=== PATIENT | female | born 1990 | race Caucasian/White ===

== ENCOUNTER 2016-10-19 22:13 | Emergency (ER) | payer OTHER ==
[~2016-10-19] VITALS: Ht 167.6 cm; Wt 61.2 kg
[~2016-10-19 22:13] MED LIST: ADDERALL 20 MG20 M1 PO; ALBENZA200 MG PO; ATIVAN1 MG PO; AZO URINARY TR1 EACH PO; BACTRIM DS TAB1 EACH PO; BENADRYL25 MG PO; BENTYL 10 MG CA10 MG PO; CIPRO500 MG PO; CIPROFLOXACIN500 M1 PO; COMPAZINE10 MG PO; COMPAZINE25 MG RECTAL; IBUPROFEN 400400 M2 PO; IBUPROFEN 800800 M1 PO; LORTAB 5 MG/5001 TA1 PO; NAPROSYN500 MG PO; NORCO 5-325 TA1 EACH PO; ONDANSETRON HCL4 M2 PO; PEPCID20 MG PO; PERCOCET 5-3251 EACH PO; PRENATAL; PRISTIQ50 MG PO; SEROQUEL XR 30300 M1 PO; SEROQUEL400 MG PO; ULTRAM 50MG TAB50 MG PO; VICOPROFEN 2001 EACH PO; VYVANSE40 MG PO; XANAX 0.5 MG0.5 MG; ZOFRAN 4 MG ORAL4 M1 DIS; ZOFRAN ODT4 MG PO
[2016-10-19 22:34] LABS: URINE BLOOD 1+ (Negative); URINE GLUCOSE-RANDOM* NEGATIVE (Negative); URINE KETONES TRACE (Negative); URINE NITRITE POSITIVE (Negative); URINE PROTEIN (DIPSTICK) 1+ (Negative); URINE SPECIFIC GRAVITY 1.025 (1.003-1.035)
[2016-10-19 22:36] LABS: ICTOTEST (BILI CONFIRMATORY) Negative (Negative); URINE BILIRUBIN NEGATIVE (Negative); URINE COLOR DARK YELLOW
[2016-10-19 22:45] LABS: CASTS None Seen /LPF (None Seen); CRYSTALS None Seen /LPF (None Seen); SQUAMOUS 4-10 Moderate /LPF (0-3)
[2016-10-19 22:46] LABS: BACTERIA 1-9 Few /HPF (None Seen)
[2016-10-19 23:58] LABS: HEMATOCRIT 41.9 % (37.0-47.0); HEMOGLOBIN 14.4 gm/dL (12.0-15.0); MCH 33.4 pg (26.0-34.0); MCHC 34.5 g/dL (28.0-37.0); RBC 4.32 mil/uL (4.20-5.00); RDW 13.2 % (10.5-14.5); WBC 8.8 thou/uL (4.0-11.0)
[2016-10-20 00:05] LABS: CALCIUM 8.8 mg/dL (8.5-10.1); CREATININE 0.7 mg/dL (0.6-1.0); POTASSIUM 3.7 mmol/L (3.5-5.1)
[2016-10-20] MEDS ORDERED: BACTRIM DS TAB1 EACH PO (00:09)
[2016-10-20] MEDS ORDERED: TORADOL 10 MG T10 MG PO (00:09)
[2016-10-20] MEDS ORDERED: PHENAZOPYRIDIN200 M2 PO (00:09)
[2016-10-20 00:32] VITALS: BP 119/70
== END 2016-10-20 00:34 | disposition home or self-care (01) ==
LOC: ER 22:13
PROVIDERS: Physician Assistant
DX: N20.0 Calculus of kidney (principal); N39.0 Urinary tract infection, site not specified; R31.9 Hematuria, unspecified; F41.9 Anxiety disorder, unspecified; F10.99 Alcohol use, unspecified with unspecified alcohol-induced disorder; Z90.49 Acquired absence of other specified parts of digestive tract; Z88.8 Allergy status to other drugs, medicaments and biological substances

== ENCOUNTER 2017-01-03 19:00 | Emergency (ER) | payer OTHER ==
[~2017-01-03] VITALS: Ht 170.2 cm; Wt 61.2 kg
[~2017-01-03 19:00] MED LIST changes: +PHENAZOPYRIDIN200 M2 PO; +TORADOL 10 MG T10 MG PO
[2017-01-03] MEDS ORDERED: NAPROSYN500 MG PO (20:49)
[2017-01-03] MEDS ORDERED: NORCO 5-325 TA1 EACH PO (20:49)
[2017-01-03 21:59] VITALS: BP 135/81
== END 2017-01-03 22:01 | disposition home or self-care (01) ==
LOC: ER 19:00
DX: S43.084A Other dislocation of right shoulder joint, initial encounter (principal); F41.9 Anxiety disorder, unspecified; F10.99 Alcohol use, unspecified with unspecified alcohol-induced disorder; F17.200 Nicotine dependence, unspecified, uncomplicated; F15.90 Other stimulant use, unspecified, uncomplicated; Z90.49 Acquired absence of other specified parts of digestive tract; Z88.1 Allergy status to other antibiotic agents; X58.XXXA Exposure to other specified factors, initial encounter; Y93.89 Activity, other specified; Y92.89 Other specified places as the place of occurrence of the external cause; Y99.8 Other external cause status

== ENCOUNTER 2017-07-16 04:14 | Inpatient (IN) | payer OTHER ==
[~2017-07-16] VITALS: Ht 170.2 cm; Wt 61.2 kg
[2017-07-16 04:22] VITALS: BP 137/91
[2017-07-16 04:50] LABS: ABSOLUTE NEUTROPHILS 8.4 thou/uL (1.4-8.2); BASOPHILS 0.4 % (0.0-2.0); HEMATOCRIT 52.5 % (37.0-47.0); HEMOGLOBIN 18.3 gm/dL (12.0-15.0); LYMPHOCYTES 7.1 % (24.0-44.0); MCH 34.8 pg (26.0-34.0); MCHC 34.9 g/dL (28.0-37.0); MCV 99.7 fL (80.0-100.0); MONOCYTES 4.5 % (1.0-8.0); PLATELET COUNT 385 thou/uL (150-400); RBC 5.26 mil/uL (4.20-5.00); RDW 12.7 % (10.5-14.5); WBC 9.6 thou/uL (4.0-11.0)
[2017-07-16] MEDS ORDERED: NOHOMEMEDICATIONS ×2 (04:53)
[2017-07-16 04:55] LABS: URINE BLOOD 1+ (Negative); URINE CLARITY SL CLOUDY; URINE COLOR YELLOW; URINE GLUCOSE-RANDOM* NEGATIVE (Negative); URINE KETONES 3+ (Negative); URINE LEUKOCYTES-REFLEX NEGATIVE (Negative); URINE NITRITE-REFLEX NEGATIVE (Negative); URINE PROTEIN (DIPSTICK) 2+ (Negative); URINE SPECIFIC GRAVITY 1.025 (1.005-1.035); URINE UROBILINOGEN 0.2 E.U./dl (0.2-1.0)
[2017-07-16 05:00] LABS: ICTOTEST (BILI CONFIRMATORY) Negative (Negative); URINE BILIRUBIN NEGATIVE (Negative); URINE REDUCING SUBSTANCE NEGATIVE
[2017-07-16 05:01] LABS: CALCIUM 11.2 mg/dL (8.5-10.1); CREATININE 0.9 mg/dL (0.6-1.0); POTASSIUM 4.1 mmol/L (3.5-5.1)
[2017-07-16 05:07] LABS: ALBUMIN 5.2 g/dL (3.4-5.0); TOTAL BILIRUBIN 1.5 mg/dL (<0.1-1.0); TOTAL PROTEIN 9.6 g/dL (6.4-8.2)
[2017-07-16 05:21] LABS: MUCUS >6 Heavy strn/LPF (None Seen); SQUAMOUS >10 Many /LPF (0-3)
[2017-07-16 05:22] LABS: CASTS None Seen /LPF (None Seen); CRYSTALS None Seen /LPF (None Seen); URINE RBC 0-2 Rare /HPF (0-2); URINE WBC-REFLEX 0-5 Rare /HPF (0-5)
[2017-07-16 09:51] VITALS: BP 132/93
[2017-07-16 10:40] LABS: AMP/METHAMP POSITIVE (Negative); BARBITURATES Negative (Negative); BENZODIAZEPINES Negative (Negative); COCAINE Negative (Negative); METHADONE Negative (Negative); OPIATES Negative (Negative); PCP Negative (Negative)
[2017-07-16 15:03] VITALS: BP 113/78
[2017-07-16 15:08] VITALS: BP 113/78
[2017-07-16 21:55] VITALS: BP 112/85
[2017-07-17 05:18] VITALS: BP 109/77
[2017-07-17 06:36] LABS: CALCIUM 8.8 mg/dL (8.5-10.1); CREATININE 0.6 mg/dL (0.6-1.0); MAGNESIUM 1.8 mg/dL (1.8-2.4); POTASSIUM 3.6 mmol/L (3.5-5.1)
[2017-07-17 09:07] VITALS: BP 117/66
[2017-07-17 16:32] VITALS: BP 98/63
[2017-07-17 20:45] VITALS: BP 110/78
[2017-07-18 04:03] VITALS: BP 100/66
[2017-07-18 07:25] VITALS: BP 101/62
[2017-07-18 15:50] VITALS: BP 88/58
[2017-07-18 19:26] VITALS: BP 110/71
[2017-07-19 03:17] VITALS: BP 100/64
[2017-07-19 06:51] VITALS: BP 85/57
[2017-07-19] MEDS ORDERED: NICOTINE TRANSD14 M1 TRANSDERM ×2 (12:21)
[2017-07-19] MEDS ORDERED: PROPRANOLOL 1010 MG PO ×2 (12:21)
[2017-07-19] MEDS ORDERED: PEPCID20 MG PO ×2 (12:21)
[2017-07-19 12:37] VITALS: BP 85/57
[2017-07-19 13:12] VITALS: BP 85/57
[2017-07-20] MEDS ORDERED: FISH OIL 1,001000 M2 PO ×2 (03:05)
[2017-07-20] MEDS ORDERED: ONCE DAILY1 EAC1 PO ×2 (03:05)
[2017-10-10] MEDS ORDERED: NORCO 5-325 TA1 EACH PO (09:22)
== END 2017-07-19 13:15 | disposition home or self-care (01) | DRG 897 ==
LOC: ER 04:14 → 4S 05:59 → EROBS 05:59 → 4S 15:06
PROVIDERS: Emergency Medicine; Internal Medicine; Nurse Practitioner
DX: F10.230 Alcohol dependence with withdrawal, uncomplicated (principal); F41.9 Anxiety disorder, unspecified; K58.9 Irritable bowel syndrome, unspecified; E86.0 Dehydration; F12.10 Cannabis abuse, uncomplicated; F14.10 Cocaine abuse, uncomplicated; F17.210 Nicotine dependence, cigarettes, uncomplicated; Z90.49 Acquired absence of other specified parts of digestive tract; Z71.6 Tobacco abuse counseling; Z88.8 Allergy status to other drugs, medicaments and biological substances
CPT/HCPCS: 10100

== ENCOUNTER 2017-07-20 00:01 | Inpatient (IN) | payer OTHER ==
[~2017-07-20] VITALS: Ht 170.2 cm; Wt 56.9 kg
--- NOTE | ~2017-07-20 | EEG ---
[facility] [place] [address] ELECTROENCEPHALOGRAM Name: NATE DUVAL Room #: 212-P [facility] IN M.R.#: [id number] Admission: 07/20/17 Attend Phys: Fahad Stone MD Discharge: 07/21/17 Date of : 86 Report #: [id number] THIS REPORT FOR: //name// CC: FORREST physician/PCP Vinicius Botello DATE OF SERVICE: 07/20/2017 The patient is a 27-year-old female with prior history of alcohol withdrawal seizures. The patient is having muscle spasms. DESCRIPTION OF PROCEDURE: Using the 10-20 electrode system, a portable EEG was performed at the bedside. The awake record consists of 10 Hz posterior dominant rhythm that attenuates with eye opening. Stage I sleep was characterized by attenuation of the background record. Photic stimulation was not activating. No focal abnormalities or epileptiform discharges were noted. IMPRESSION: This is a normal adult awake to stage I sleep record. No focal abnormalities or epileptiform discharges are noted. It should be kept in mind that one normal EEG does not rule out a seizure disorder. <ELECTRONICALLY SIGNED> By: America Phillips DO 07/31/17 1040 1221 [id number] America Phillips DO /nt
[~2017-07-20 00:01] MED LIST changes: +NICOTINE TRANSD14 M1 TRANSDERM; +NOHOMEMEDICATIONS; +PROPRANOLOL 1010 MG PO
[2017-07-20 00:02] VITALS: BP 125/99
[2017-07-20 00:26] LABS: ABSOLUTE NEUTROPHILS 11.8 thou/uL (1.4-8.2); BASOPHILS 0.5 % (0.0-2.0); EOSINOPHILS 0.4 % (0.0-3.0); HEMATOCRIT 48.1 % (37.0-47.0); HEMOGLOBIN 16.6 gm/dL (12.0-15.0); LYMPHOCYTES 13.3 % (24.0-44.0); MCH 34.2 pg (26.0-34.0); MCHC 34.6 g/dL (28.0-37.0); MCV 98.9 fL (80.0-100.0); MONOCYTES 6.1 % (1.0-8.0); PLATELET COUNT 359 thou/uL (150-400); POLYS 79.7 % (36.0-66.0); RBC 4.86 mil/uL (4.20-5.00); RDW 12.2 % (10.5-14.5); WBC 14.8 thou/uL (4.0-11.0)
[2017-07-20 00:34] LABS: CALCIUM 10.9 mg/dL (8.5-10.1); CREATININE 0.8 mg/dL (0.6-1.0); POTASSIUM 4.7 mmol/L (3.5-5.1)
[2017-07-20 00:38] LABS: AMP/METHAMP Negative (Negative); BARBITURATES Negative (Negative); BENZODIAZEPINES Negative (Negative); COCAINE Negative (Negative); METHADONE Negative (Negative); OPIATES Negative (Negative); PCP Negative (Negative)
[2017-07-20 00:40] LABS: ALBUMIN 4.2 g/dL (3.4-5.0); TOTAL PROTEIN 7.8 g/dL (6.4-8.2)
[2017-07-20] MEDS ORDERED: ONCE DAILY1 EAC1 PO ×2 (03:05)
[2017-07-20] MEDS ORDERED: FISH OIL 1,001000 M2 PO ×2 (03:05)
[2017-07-20 03:47] VITALS: BP 115/65
[2017-07-20 05:01] LABS: URINE BILIRUBIN NEGATIVE (Negative); URINE BLOOD TRACE (Negative); URINE CLARITY CLEAR; URINE COLOR YELLOW; URINE GLUCOSE-RANDOM* NEGATIVE (Negative); URINE KETONES 1+ (Negative); URINE LEUKOCYTES-REFLEX NEGATIVE (Negative); URINE NITRITE-REFLEX NEGATIVE (Negative); URINE PROTEIN (DIPSTICK) NEGATIVE (Negative); URINE SPECIFIC GRAVITY 1.015 (1.005-1.035)
[2017-07-20 07:22] VITALS: BP 105/71
[2017-07-20 13:16] VITALS: BP 104/68
[2017-07-20 16:30] VITALS: BP 104/69
[2017-07-20 20:06] VITALS: BP 114/80
[2017-07-21 03:01] LABS: HEMATOCRIT 40.5 % (37.0-47.0); MCH 34.7 pg (26.0-34.0); MCHC 34.6 g/dL (28.0-37.0); MCV 100.2 fL (80.0-100.0); RBC 4.05 mil/uL (4.20-5.00); RDW 12.5 % (10.5-14.5); WBC 9.6 thou/uL (4.0-11.0)
[2017-07-21 03:16] LABS: CREATININE 0.6 mg/dL (0.6-1.0); POTASSIUM 3.7 mmol/L (3.5-5.1)
[2017-07-21 03:28] LABS: CALCIUM 8.9 mg/dL (8.5-10.1)
[2017-07-21 04:00] VITALS: BP 112/74
[2017-07-21 04:02] VITALS: BP 112/74
[2017-07-21 08:39] VITALS: BP 113/72
[2017-07-21] MEDS ORDERED: XANAX 0.5 MG0.5 MG PO ×2 (10:31)
[2017-07-21 13:31] VITALS: BP 113/72
[2017-10-10] MEDS ORDERED: NORCO 5-325 TA1 EACH PO (09:22)
== END 2017-07-21 14:40 | disposition home or self-care (01) | DRG 872 ==
LOC: ER 00:01 → EROBS 01:00 → 2N 01:00 → ENTRNSPT 07-21 14:34 → EDTRNSPTSTS 07-21 14:38 → 2N 07-21 14:40
PROVIDERS: Emergency Medicine; Nurse Practitioner Acute Care
DX: A41.9 Sepsis, unspecified organism (principal); F10.239 Alcohol dependence with withdrawal, unspecified; R65.20 Severe sepsis without septic shock; F41.9 Anxiety disorder, unspecified; F32.9 Major depressive disorder, single episode, unspecified; F17.210 Nicotine dependence, cigarettes, uncomplicated; F15.10 Other stimulant abuse, uncomplicated; Z87.442 Personal history of urinary calculi; Z79.899 Other long term (current) drug therapy; Z88.8 Allergy status to other drugs, medicaments and biological substances
CPT/HCPCS: 10081

== ENCOUNTER 2018-08-12 20:09 | Emergency (ER) | payer OTHER ==
[~2018-08-12] VITALS: Ht 170.2 cm; Wt 61.2 kg
[~2018-08-12 20:09] MED LIST changes: +FISH OIL 1,001000 M2 PO; +ONCE DAILY1 EAC1 PO; +XANAX 0.5 MG0.5 MG PO
[2018-08-12 21:06] LABS: ABSOLUTE NEUTROPHILS 5.7 thou/uL (1.4-8.2); BASOPHILS 0.4 % (0.0-2.0); HEMATOCRIT 47.2 % (37.0-47.0); HEMOGLOBIN 16.3 gm/dL (12.0-15.0); LYMPHOCYTES 5.9 % (24.0-44.0); MCH 34.5 pg (26.0-34.0); MCHC 34.7 g/dL (28.0-37.0); MCV 99.6 fL (80.0-100.0); MONOCYTES 4.2 % (1.0-8.0); PLATELET COUNT 333 thou/uL (150-400); POLYS 89.5 % (36.0-66.0); RBC 4.74 mil/uL (4.20-5.00); RDW 13.4 % (10.5-14.5); WBC 6.4 thou/uL (4.0-11.0)
[2018-08-12 21:16] LABS: CREATININE 0.6 mg/dL (0.6-1.0); MAGNESIUM 1.5 mg/dL (1.8-2.4); POTASSIUM 3.5 mmol/L (3.5-5.1)
[2018-08-12 22:43] LABS: URINE BILIRUBIN NEGATIVE (Negative); URINE BLOOD 3+ (Negative); URINE CLARITY CLEAR; URINE COLOR YELLOW; URINE GLUCOSE-RANDOM* NEGATIVE (Negative); URINE KETONES 3+ (Negative); URINE LEUKOCYTES-REFLEX NEGATIVE (Negative); URINE NITRITE-REFLEX NEGATIVE (Negative); URINE PROTEIN (DIPSTICK) 2+ (Negative); URINE SPECIFIC GRAVITY >= 1.030 (1.005-1.035)
[2018-08-12 22:58] LABS: CASTS None Seen /LPF (None Seen); CRYSTALS None Seen /LPF (None Seen); MUCUS 0-3 Light strn/LPF (None Seen); SQUAMOUS >10 Many /LPF (0-3); URINE RBC 3-10 Few /HPF (0-2); URINE WBC-REFLEX 0-5 Rare /HPF (0-5)
[2018-08-13] MEDS ORDERED: ZOFRAN4 MG PO (01:00)
[2018-08-13 01:08] VITALS: BP 129/89
== END 2018-08-13 01:24 | disposition home or self-care (01) ==
LOC: ER 20:09
PROVIDERS: Student in an Organized Health Care Education/Training Program
DX: F10.239 Alcohol dependence with withdrawal, unspecified (principal); R11.2 Nausea with vomiting, unspecified; F17.210 Nicotine dependence, cigarettes, uncomplicated; K58.9 Irritable bowel syndrome, unspecified; F41.9 Anxiety disorder, unspecified; F32.9 Major depressive disorder, single episode, unspecified; Z98.890 Other specified postprocedural states; Z88.8 Allergy status to other drugs, medicaments and biological substances; Z90.49 Acquired absence of other specified parts of digestive tract; Y90.0 Blood alcohol level of less than 20 mg/100 ml

== ENCOUNTER 2018-12-22 15:16 | Emergency (ER) | payer OTHER ==
[~2018-12-22] VITALS: Ht 167.6 cm; Wt 56.7 kg
[~2018-12-22 15:16] MED LIST changes: +ZOFRAN4 MG PO
[2018-12-22 15:40] LABS: ABSOLUTE NEUTROPHILS 5.7 thou/uL (1.4-8.2); BASOPHILS 0.8 % (0.0-2.0); EOSINOPHILS 0.4 % (0.0-3.0); HEMATOCRIT 44.1 % (37.0-47.0); LYMPHOCYTES 12.6 % (24.0-44.0); MCH 32.5 pg (26.0-34.0); MCV 95.6 fL (80.0-100.0); MONOCYTES 8.3 % (1.0-8.0); PLATELET COUNT 336 thou/uL (150-400); POLYS 77.9 % (36.0-66.0); RBC 4.61 mil/uL (4.20-5.00); RDW 12.9 % (10.5-14.5); WBC 7.4 thou/uL (4.0-11.0)
[2018-12-22 15:48] LABS: ANION GAP 18 mmol/L (7-16); BUN 12 mg/dL (7-18); CALCIUM 9.2 mg/dL (8.5-10.1); CHLORIDE 99 mmol/L (98-107); CO2 19 mmol/L (21-32); CREATININE 0.6 mg/dL (0.6-1.0); GLUCOSE 128 mg/dL (74-106); POTASSIUM 3.1 mmol/L (3.5-5.1); SODIUM 136 mmol/L (136-145)
[2018-12-22 15:58] LABS: ALBUMIN 3.9 g/dL (3.4-5.0); LIPASE 62 U/L (73-393); SGOT 60 U/L (15-37); SGPT 60 U/L (30-65); TOTAL BILIRUBIN 0.8 mg/dL (<0.1-1.0); TOTAL PROTEIN 7.4 g/dL (6.4-8.2); TROPONIN-I <0.06 ng/mL (<0.06)
--- NOTE | 2018-12-22 16:34 | EKG ---
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
[2018-12-22 20:14] LABS: URINE BILIRUBIN NEGATIVE (Negative); URINE BLOOD NEGATIVE (Negative); URINE CLARITY CLEAR; URINE COLOR YELLOW; URINE GLUCOSE-RANDOM* NEGATIVE (Negative); URINE KETONES 3+ (Negative); URINE LEUKOCYTES-REFLEX NEGATIVE (Negative); URINE NITRITE-REFLEX NEGATIVE (Negative); URINE PROTEIN (DIPSTICK) NEGATIVE (Negative); URINE UROBILINOGEN 0.2 E.U./dl (0.2-1.0)
[2018-12-22] MEDS ORDERED: NORCO 5-325 TA1 EAC1 PO (20:44)
[2018-12-22] MEDS ORDERED: ZOFRAN ODT4 MG DISSOLVE (20:44)
[2018-12-22 21:34] VITALS: BP 125/81
== END 2018-12-22 21:15 | disposition still patient (30) ==
LOC: ER 15:16
PROVIDERS: Emergency Medicine
DX: R11.2 Nausea with vomiting, unspecified (principal); R10.13 Epigastric pain; F41.9 Anxiety disorder, unspecified; K58.9 Irritable bowel syndrome, unspecified; F32.9 Major depressive disorder, single episode, unspecified; F17.210 Nicotine dependence, cigarettes, uncomplicated; Z87.442 Personal history of urinary calculi; Z98.890 Other specified postprocedural states; Z90.49 Acquired absence of other specified parts of digestive tract; Z87.440 Personal history of urinary (tract) infections; Z88.8 Allergy status to other drugs, medicaments and biological substances

== ENCOUNTER 2019-01-10 19:25 | Emergency (ER) | payer OTHER ==
[~2019-01-10] VITALS: Ht 170.2 cm; Wt 59.0 kg
[~2019-01-10 19:25] MED LIST changes: +NORCO 5-325 TA1 EAC1 PO; +ZOFRAN ODT4 MG DISSOLVE
[2019-01-10] MEDS ORDERED: BACTRIM DS TAB1 EACH PO (20:15)
[2019-01-10] MEDS ORDERED: AMOXICILLIN 50500 MG PO (20:16)
[2019-01-10 21:05] LABS: ABSOLUTE NEUTROPHILS 9.8 thou/uL (1.4-8.2); BASOPHILS 0.4 % (0.0-2.0); EOSINOPHILS 1.3 % (0.0-3.0); HEMATOCRIT 39.4 % (37.0-47.0); HEMOGLOBIN 13.8 gm/dL (12.0-15.0); LYMPHOCYTES 16.4 % (24.0-44.0); MCH 32.7 pg (26.0-34.0); MCV 93.5 fL (80.0-100.0); PLATELET COUNT 395 thou/uL (150-400); POLYS 73.9 % (36.0-66.0); RBC 4.22 mil/uL (4.20-5.00); RDW 13.3 % (10.5-14.5); WBC 13.3 thou/uL (4.0-11.0)
[2019-01-10 21:13] LABS: CALCIUM 9.6 mg/dL (8.5-10.1); CREATININE 0.7 mg/dL (0.6-1.0); POTASSIUM 3.5 mmol/L (3.5-5.1)
[2019-01-10 22:19] LABS: ESR (SEDRATE) 26 mm/hour (0-19)
[2019-01-11] MEDS ORDERED: NORCO 5-325 TA1 EAC1 PO (02:14)
[2019-01-11] MEDS ORDERED: KEFLEX500 M1 PO (02:14)
[2019-01-11 02:27] VITALS: BP 114/75
== END 2019-01-11 02:48 | disposition home or self-care (01) ==
LOC: ER 19:25
PROVIDERS: Emergency Medicine
DX: L02.416 Cutaneous abscess of left lower limb (principal); K58.9 Irritable bowel syndrome, unspecified; F41.9 Anxiety disorder, unspecified; F32.9 Major depressive disorder, single episode, unspecified; F17.210 Nicotine dependence, cigarettes, uncomplicated; Z87.442 Personal history of urinary calculi; Z98.890 Other specified postprocedural states; Z90.49 Acquired absence of other specified parts of digestive tract; Z88.1 Allergy status to other antibiotic agents; Z88.6 Allergy status to analgesic agent; Z88.8 Allergy status to other drugs, medicaments and biological substances

== ENCOUNTER 2019-01-11 21:30 | Inpatient (IN) | payer OTHER ==
[~2019-01-11] VITALS: Ht 170.2 cm; Wt 58.5 kg
[~2019-01-11 21:30] MED LIST changes: +AMOXICILLIN 50500 MG PO; +KEFLEX500 M1 PO
[2019-01-11 21:36] VITALS: BP 122/81
[2019-01-11 23:05] LABS: ABSOLUTE NEUTROPHILS 4.6 thou/uL (1.4-8.2); BASOPHILS 0.7 % (0.0-2.0); HEMATOCRIT 39.8 % (37.0-47.0); HEMOGLOBIN 13.6 gm/dL (12.0-15.0); MCH 32.2 pg (26.0-34.0); MCHC 34.2 g/dL (28.0-37.0); MCV 94.4 fL (80.0-100.0); MONOCYTES 8.2 % (1.0-8.0); PLATELET COUNT 371 thou/uL (150-400); POLYS 60.1 % (36.0-66.0); RBC 4.22 mil/uL (4.20-5.00); RDW 13.4 % (10.5-14.5); WBC 7.6 thou/uL (4.0-11.0)
[2019-01-11 23:17] LABS: CALCIUM 9.1 mg/dL (8.5-10.1); CREATININE 0.6 mg/dL (0.6-1.0); POTASSIUM 3.7 mmol/L (3.5-5.1)
[2019-01-12 00:22] VITALS: BP 105/72
--- NOTE | 2019-01-12 00:54 | NUR ---
CALLED REPORT TO JONY WHITESIDE AT 4W
--- NOTE | 2019-01-12 01:35 | NUR ---
Pt. arrived to the unit from the emergency room accompanied by staff. She is alert and oriented. Admission assessment and history is completed. Pt. does c/o left groin pain. Area is pinkish/red in color and warm upon touch. No open wounds. Pain med given (see emar) withy some relief noted. Assisted up to the bathroom with stand by assistance.
[2019-01-12 01:45] VITALS: BP 126/83
[2019-01-12 05:55] VITALS: BP 119/72
[2019-01-12 08:02] VITALS: BP 115/75
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
[2019-01-12 15:14] VITALS: BP 124/74
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
[2019-01-12 20:13] VITALS: BP 109/61
[2019-01-13 06:36] LABS: CALCIUM 8.9 mg/dL (8.5-10.1); CREATININE 0.5 mg/dL (0.6-1.0); POTASSIUM 3.9 mmol/L (3.5-5.1)
--- NOTE | 2019-01-13 07:25 | NUR ---
progress pt a/o x4, up ad hu voiding qs, incision to left groin covered with mepilex and packed with iodoform scant bloody drainage noted. alternating fentanyl with hydrocodone for pain control. iv antibiotics continue continue poc.
[2019-01-13 08:32] VITALS: BP 111/71
--- NOTE | 2019-01-13 10:58 | NUR ---
PT A&OX4, VSS, PAIN IN LEFT GROIN. PAIN MANAGED WITH MEDICATION AND ICE PACK. WOUND PACKED 01/11/19 PER ZULEMA, DRESSING REMAINS C/D/I. PAIN HAS BEEN AT A 9 AND WOULD PARTIALLY DECREASE TO A 7. LEFT GROIN RED AND WARM TO TOUCH, PATIENT HAS HAD SHOWER TODAY. NO SIGNS OF DISTRESS. WILL CONTINUED TO MONITOR.
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
[2019-01-13 15:27] VITALS: BP 118/68
[2019-01-13 19:12] VITALS: BP 129/78
[2019-01-14 03:14] VITALS: BP 110/64
--- NOTE | 2019-01-14 07:23 | NUR ---
progress pain increased this shift opened whole abscess and packed wound at bedside redness surrounding wound dissipating but pt reports pain of a 9 to 10 asks for iv fentanyl and hydrocodone given with some effect pt does sleep after. iv antibiotics continue, no bm x 1 week mom given awaiting results continue poc.
[2019-01-14 08:17] VITALS: BP 126/99
--- NOTE | 2019-01-14 09:53 | HC ---
[facility] [place] [address] CONSULTATION Name: NATE DUVAL Room #: 456-P ADM IN M.R.#: [id number] Admission: 01/11/19 ������������������ Attend Phys: Jasmeet Barber Discharge: ������������������ Date of : 86 Report #: [id number] THIS REPORT FOR: //name// CC: Irma Barber DATE OF SERVICE: 01/13/2019 ATTENDING PHYSICIAN: Dr. Pantoja CONSULTING PHYSICIAN: Dr. Carlo Portillo. REASON FOR CONSULTATION: Left thigh abscess. ASSESSMENT: Left thigh abscess. PLAN: 1. Thank you for the consultation. We will follow along. 2. Consent for repeat incision and drainage. HISTORY OF PRESENT ILLNESS: The patient is a very pleasant 28-year-old female who presents with a 6-day history of left thigh pain and soft tissue infection. The patient has been to the ER 3 times now. She was admitted. She has had it incised and drained once. One of the wound was closed. The second wound was closed as well, but it has been reopened and has been intact. The patient developed further fluid collections and Surgery was consulted for repeat incision and drainage. PAST MEDICAL HISTORY: 1. Polysubstance abuse. 2. Anxiety and depression. PAST SURGICAL HISTORY: Cholecystectomy. SOCIAL HISTORY: Endorses tobacco, alcohol, and marijuana use. FAMILY HISTORY: Denies coagulopathy. REVIEW OF SYSTEMS: CONSTITUTIONAL: No fever. No chills. HEENT: Denies blurring of vision, double vision, headaches, hearing loss, sinus drainage or sore throat. Denies blurring of vision, double vision, headaches, hearing loss, sinus drainage or sore throat. CARDIOVASCULAR: Denies chest pain, palpitations, orthopnea or paroxysmal nocturnal dyspnea. RESPIRATORY: Denies cough, wheezing, hemoptysis, or shortness of air. [facility] [address] [place] [address] CONSULTATION Name: NATE DUVAL Room #: 456-P [facility] IN .R.#: [id number] Admission: 01/11/19 ������������������ Attend Phys: Jasmeet Barber Discharge: ������������������ Date of : 86 Report #: [id number] GASTROINTESTINAL: No nausea. No vomiting. No diarrhea. No Heartburn. No nausea. No vomiting. No diarrhea. No Heartburn. GENITOURINARY: Denies dysuria or hematuria or kidney stones. No urinary frequency, urgency or incontinence. Denies dysuria or hematuria or kidney stones. No urinary frequency, urgency or incontinence. MUSCULOSKELETAL: No joint pain. No muscle pain. NEUROLOGICAL: Denies tremor, stroke or seizure. Denies tremor, stroke or seizure. HEMATOLOGIC / LYMPHATICS: Denies easy bruising, easy bleeding or enlarged lymph nodes. SKIN: See above and below. ENDOCRINE: No heat or cold intolerance PSYCHIATRIC: Denies depression, anxiety, or schizophrenia. PHYSICAL EXAMINATION: GENERAL: No apparent distress, alert and oriented x3. HEENT: PERRLA, EOMI, MMM, NCAT NECK: Supple. No LAD CARDIOVASCULAR: Regular rhythm and rate. Hemodynamically stable. Normal capillary refill. Regular rhythm and rate. Hemodynamically stable. Normal capillary refill. PULMONARY: Nonlabored. Clear to auscultation bilaterally ABDOMEN: Soft, nontender to palpation, no guarding, no rigidity, no rebound tenderness, no hernias. EXTREMITIES: Calves soft, nontender, no edema. SKIN: The patient has a 6 cm wide x 2 cm wide region of induration and fluctuance surrounding 2 previous incision and drainage sites. One previous incision and drainage site is closed. The other is packed with Nu Gauze. The patient is exquisitely tender overlying these regions. PSYCHIATRIC: Normal mood and affect Normal mood and affect NEUROLOGICAL: Grossly intact. CN II-XII grossly intact. MUSCULOSKELETAL: 5/5 strength in upper extremities and lower extremities bilaterally LYMPHATICS: No cervical, inguinal, or supraclavicular lymphadenopathy. LABORATORY DATA: White blood count normal. Creatinine normal. IMAGING: CT abdomen and pelvis self-interpretation: The patient has left groin induration at the site consistent with her wound exam. ��������������������������������������������� <ELECTRONICALLY SIGNED> ���������������������������������������� By: Carlo Portillo MD ��������������������������������������������� 01/14/19 0953 [id number] [id number] Carlo Portillo MD /nt
--- NOTE | 2019-01-14 09:53 | O ---
[facility] [place] [address] OPERATIVE REPORT Name: NATE DUVAL Room #: 456-P ADM IN M.R.#: [id number] Admission: 01/11/19 ������������������ Attend Phys: Jasmeet Barber Discharge: ������������������ Date of : 86 Report #: [id number] THIS REPORT FOR: //name// CC: Irma Barber DATE OF SERVICE: 01/13/2019 PROCEDURE PERFORMED: Incision and drainage of left groin abscess. PREOPERATIVE DIAGNOSIS: Left groin abscess. POSTOPERATIVE DIAGNOSIS: Left groin abscess. SURGEON: Dr. Portillo. ANESTHETIC: 1. 1 mg of Ativan. 2. 0.25% Marcaine with epinephrine. SPECIMENS: None. COMPLICATIONS: None. FINDINGS: The patient had a collection of old sanguineous fluid that was released. No purulence. DESCRIPTION OF PROCEDURE: After informed consent was obtained, the patient was placed in supine position. Her left groin was prepped and draped in the usual sterile fashion. Marcaine was injected into the left groin overlying the entire site. The previous incision sites were extended to approximately an extra centimeter and they were transformed to the cruciate incision as well. This was done using a scalpel. The wound was then explored bluntly. The wound was explored with a hemostat and with my finger. The wound did contain a large amount of fluid that was old sanguinous. The wound was hemostatic. It was irrigated and packed with Nu Gauze. The patient tolerated the procedure well. There were no adverse events throughout the course of the procedure. She was in stable condition throughout. ��������������������������������������������� <ELECTRONICALLY SIGNED> ���������������������������������������� By: Carlo Portillo MD ��������������������������������������������� 01/14/19 0953 [id number] Carlo Portillo MD /nt
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
--- NOTE | 2019-01-14 19:25 | NUR ---
PATIENT CONTINUES WITH SEVERE LEFT GROIN PAIN. ALTERNATED FENTANYL AND OXYCODONE AND PAIN NUMBER A 6 AT THE LOWEST. PATIENT STATES THIS IS TOLERABLE. AFEBRILE. LESS REDNESS TO LT THIGH. SMALL AMOUNT OF SANGUINOUS DRAINAGE NOTED TO LEFT GROIN INCISION. UP INDEPENDENTLY TO BATHROOM. TOLERATING DIET. CONTINUED WITH IV ANTIBIOTICS.
[2019-01-14 19:40] VITALS: BP 125/87
--- NOTE | 2019-01-15 04:44 | NUR ---
ASSUMED CARE OF PT @1900. PT A&OX4. PT C/O OF PAIN AND WAS MEDICATED PER JUL. THERE IS MODERATE SEROSANGUINEOUS DRAINAGE TO INCISION IN THE LEFT GROIN. DRESSING CHANGED. DRESSING TO LEFT THIGH AREA IS CLEAN, DRY AND INTACT. PT IS UP WITH STANDBY ASSIST DUE TO SO MUCH PAIN WHEN SHE GETS UP. BOYFRIEND STAYED THE NIGHT
[2019-01-15 05:09] LABS: CALCIUM 9.1 mg/dL (8.5-10.1); CREATININE 0.6 mg/dL (0.6-1.0); POTASSIUM 3.8 mmol/L (3.5-5.1)
[2019-01-15 05:43] LABS: HEMATOCRIT 42.6 % (37.0-47.0); HEMOGLOBIN 14.1 gm/dL (12.0-15.0); MCH 31.9 pg (26.0-34.0); MCHC 33.1 g/dL (28.0-37.0); MCV 96.3 fL (80.0-100.0); RBC 4.43 mil/uL (4.20-5.00); RDW 13.6 % (10.5-14.5); WBC 5.9 thou/uL (4.0-11.0)
[2019-01-15 08:18] VITALS: BP 118/81
[2019-01-15 15:10] VITALS: BP 118/70
--- NOTE | 2019-01-15 16:12 | NUR ---
CARE TEAM INDICATED PT PT MAY NEED REPEAT I&D.ONCE COMPLETED AND PT IS MEDICALLY STABLE TO DC HOME FAX ORDERS FOR NURSING TO [facility] AT CALL .
--- NOTE | 2019-01-15 18:13 | NUR ---
PT STABLE THROUGHOUT SHIFT. PT C/O PAIN THROUGHOUT SHIFT, ADDRESSED WITH MEDICATION WHICH OFFERED PARTIAL RELIEF. CHANGED DRESSINGS, PT EXTREMELY ANXIOUS AND TEARFUL/FEARFUL DURING PROCESS. GAVE NAUSEA MED. FOR DRESSING CHANE PT WAS FEELING NAUSEATED. PT RESTING.
[2019-01-15 19:22] VITALS: BP 109/84
--- NOTE | 2019-01-16 03:35 | NUR ---
ASSUMED CARE OF PT @1900. PT A&OX4. PAIN SEEMS TO BE WELL CONTROLLED WITH CURRENT REGIMEN. PT SAID SHE FELT SO MUCH BETTER GETTING TO THE BR AND BACK WITHOUT ALOT OF PAIN. PT HASN'T HAD A BM IN 6DAYS. MIRALAX WAS ADDED TO CURRENT BOWEL REGIMEN. PT PASSES FLATUS REGULARLY. ACTIVE BS IN ALL QUADRANTS. PT C/O HEARTBURN AND TUMS WAS ORDERED AND GIVEN. BOYFRIEND STAYED THE NIGHT
[2019-01-16 04:20] VITALS: BP 117/58
[2019-01-16 08:48] VITALS: BP 121/81
[2019-01-16 16:27] VITALS: BP 103/61
--- NOTE | 2019-01-16 18:22 | NUR ---
AAOX4 VERY PLESANT AND COOPERATVE. DENIES PAIN. LUNGS CLEAR ON ROOM AIR NO C/O OF SOA. WENT TO CT FOR SCAN AND REVEALED SMALL PE. DR ENRIQUEZ NOTIFIED AND ORDERS RECIEVED. UAL IN ROOM WITH GOOD TOLERATION OF ACTIVITY. GOOD APPETIE FOR MEALS. FAMILY HERE TO VISIT.
--- NOTE | 2019-01-16 18:25 | NUR ---
AAOX4 PLESANT AND COOPERATIVE. UAL IN ROOM WITH ENCOURAGEMENT, PATIENT PREFERS TO BE SEDENTARY. LEFT GROIN DRESSING CHANGE COMPLETED WITH C/O PAIN WITH PACKING. SMALL SERO SANG DRAINAGE. IV LEFT UPPER ARM. GOOD APPETIE FOR MEALS. TOOK MIRALAX FOR CONSTIPATION. FRIEND AT BEDSIDE.
[2019-01-16 19:56] VITALS: BP 103/70
--- NOTE | 2019-01-17 04:31 | NUR ---
ASSUMED CARE OF PT @1900. PT A&OX4. PT IS ADLIB IN THE ROOM. PAIN IS WELL CONTROLLED WITH CURRENT PAIN REGIMEN. CONT POC AND MONITERING OF PT. PT IS COOPERATIVE AND APPROPRAITE. DRESSINGS DRY CLEAN AND INTACT. CALL SANCHEZ WITHIN REACH. WILL CONT TO MONITOR
[2019-01-17 04:37] VITALS: BP 111/65
[2019-01-17 07:50] VITALS: BP 117/74
[2019-01-17 17:08] VITALS: BP 114/83
--- NOTE | 2019-01-17 20:04 | NUR ---
PATIENT ALERT AND ORIENTED AND INVOVLED IN POC. PATIENT AND BOYFRIEND CHANGED WOUND DRESSING WITH PROMPTING BY NURSE. SURGERY GROUP OK WITH DISCHARGE. WAITING FOR ID TO OK PATIENT FOR DC. DR PLZAA AWARE. BOYFRIEND AT BEDSIDE ENTIRE DAY. PATIENT REQUESTING TO GO OUTSIDE. THIS NURSE INDICATED CAN WALK NURSING UNIT BUT CAN'T GO OUTSIDE. DIDN'T GIVE ANY IV PAIN MED EXCEPT FOR DRESSING CHANGE. PATIENT GRATEFUL FOR CARE SHE RECEIVED TODAY.
[2019-01-17 20:08] VITALS: BP 113/80
--- NOTE | 2019-01-18 04:43 | NUR ---
PATIENT ALERT AND ORIENTED X4. UP ADLIB IN HALLWAY WITH . DRESSING DRY AND INTACT. SALINE LOCK PATENT FOR FLUSH. C/O PAIN AND MEDICATED WITH GOOD RESULTS. PATIENT IS LOOKING FORWARD TO GOING HOME, POSSIBLY TODAY. RESTING QUIETLY AT TIME OF NOTE. WILL MONITOR.
[2019-01-18 07:45] VITALS: BP 106/63
--- NOTE | 2019-01-18 11:59 | NUR ---
WOUND CARE FOLLOW UP; THE WOUND IS ALMOST HEALED. WE WILL D/C THE THERANITAONEY. NO S/S OF INFECTION, NO C/O PAIN. RECOMMENDATIONS; CONTINUE A BOARDERED FOAM. DISCUSSED WITH STEVO
--- NOTE | 2019-01-18 13:31 | NUR ---
ASSUMED CARE AT 0700, SHIFT ASSESSMENT DONE, MEDS GIVEN, VSS. REPORTED GROIN PAIN, PRN AND SCHDULED PAIN MEDS GIVEN. LAB CALLED AND INFORMED THAT CULTURE FROM THE ABSCESS HAS NOT BEING RECEIVED, DR PLAZA AND ARJUN MARION NOTIFIED. CARE HANDED OVER TO DENNISE WHITESIDE AT 1200
[2019-01-18] MEDS ORDERED: LINEZOLID600 MG PO (14:13)
[2019-01-18] MEDS ORDERED: MIRALAX17 GM PO (14:13)
[2019-01-18] MEDS ORDERED: PERCOCET PO (14:13)
[2019-01-18] MEDS ORDERED: CEFDINIR300 MG PO (14:13)
[2019-01-18] MEDS ORDERED: ACETAMINOPHEN325 M1 PO (14:13)
[2019-01-18 14:27] VITALS: BP 106/63
--- NOTE | 2019-01-18 14:56 | NUR ---
dp sent referral to [email or web address], patient to [place] today
--- NOTE | 2019-01-18 15:33 | NUR ---
IV DISCONTINUED. PT DISCHARGED TO HOME.
--- NOTE | 2019-01-18 15:37 | NUR ---
CARE TEAM INDICATED THAT PT IS MEDICALLY STABLE TO DC HOME THIS DAY ON ORAL ABX WITH [facility]. NO OTHER CM INTERVENTION INDICATED. CASE CLOSED.
[2019-01-18 16:52] VITALS: BP 106/63
--- NOTE | 2019-01-18 16:54 | NUR ---
[facility] CALLED AND INDICATED THEY DON'T ACCEPT PT'S INSURANCE. REFERRAL SENT TO [facility]. THEY CALLED AND INDICATED THAT THEY CAN ACCEPT PT FOR NURSING. ORDERS WERE FAXED. NO OTHER CM INTERVENTION INDICATED. CASE CLOSED.
== END 2019-01-18 15:46 | disposition home health service (06) | DRG 581 ==
LOC: ER 21:30 → EROBS 23:39 → 4W 23:39 → EROBS 23:39 → 4W 01-12 01:30
PROVIDERS: Emergency Medicine; Hospitalist; Nurse Practitioner Family; ADMIT Hospitalist
PROC: 0J9C0ZZ Drainage of Pelvic Region Subcutaneous Tissue and Fascia, Open Approach (ICD-10-PCS; principal; 2019-01-13)
DX: L03.314 Cellulitis of groin (principal); L02.214 Cutaneous abscess of groin; F10.10 Alcohol abuse, uncomplicated; F19.10 Other psychoactive substance abuse, uncomplicated; K58.9 Irritable bowel syndrome, unspecified; F41.9 Anxiety disorder, unspecified; K59.00 Constipation, unspecified; F17.210 Nicotine dependence, cigarettes, uncomplicated; F32.9 Major depressive disorder, single episode, unspecified; Z91.5 Personal history of self-harm; Z79.2 Long term (current) use of antibiotics; Z79.899 Other long term (current) drug therapy; Z79.1 Long term (current) use of non-steroidal anti-inflammatories (NSAID); Z88.5 Allergy status to narcotic agent; Z88.8 Allergy status to other drugs, medicaments and biological substances; Z90.49 Acquired absence of other specified parts of digestive tract; Z98.891 History of uterine scar from previous surgery
CPT/HCPCS: 10040

== ENCOUNTER 2019-05-16 21:57 | Inpatient (IN) | payer OTHER ==
[~2019-05-16] VITALS: Ht 170.2 cm; Wt 58.2 kg
[~2019-05-16 21:57] MED LIST changes: +ACETAMINOPHEN325 M1 PO; +CEFDINIR300 MG PO; +LINEZOLID600 MG PO; +MIRALAX17 GM PO; +PERCOCET PO
[2019-05-16 22:04] VITALS: BP 125/93
[2019-05-16 22:48] LABS: HEMATOCRIT 47.4 % (37.0-47.0); HEMOGLOBIN 15.9 gm/dL (12.0-15.0); MCH 32.1 pg (26.0-34.0); MCHC 33.6 g/dL (28.0-37.0); MCV 95.5 fL (80.0-100.0); PLATELET COUNT 331 thou/uL (150-400); RBC 4.96 mil/uL (4.20-5.00); RDW 14.4 % (10.5-14.5); WBC 11.9 thou/uL (4.0-11.0)
[2019-05-16 22:54] LABS: CALCIUM 9.4 mg/dL (8.5-10.1); CREATININE 0.9 mg/dL (0.6-1.0); POTASSIUM 3.6 mmol/L (3.5-5.1)
[2019-05-16 23:00] LABS: ALBUMIN 4.6 g/dL (3.4-5.0); TOTAL BILIRUBIN 1.2 mg/dL (<0.1-1.0); TOTAL PROTEIN 8.6 g/dL (6.4-8.2)
[2019-05-16 23:00] LABS: URINE BILIRUBIN 1+ (Negative); URINE BLOOD TRACE (Negative); URINE CLARITY SL CLOUDY; URINE COLOR YELLOW; URINE GLUCOSE-RANDOM* NEGATIVE (Negative); URINE KETONES 3+ (Negative); URINE LEUKOCYTES-REFLEX NEGATIVE (Negative); URINE NITRITE-REFLEX NEGATIVE (Negative); URINE PROTEIN (DIPSTICK) 1+ (Negative); URINE SPECIFIC GRAVITY 1.025 (1.005-1.035); URINE UROBILINOGEN 0.2 E.U./dl (0.2-1.0)
[2019-05-16 23:19] LABS: ICTOTEST (BILI CONFIRMATORY) Positive (Negative)
[2019-05-16 23:20] LABS: BACTERIA-REFLEX 1-9 Few /HPF (None Seen); CASTS None Seen /LPF (None Seen); MUCUS 0-3 Light strn/LPF (None Seen); SQUAMOUS >10 Many /LPF (0-3); URINE RBC None Seen /HPF (0-2); URINE WBC-REFLEX 0-5 Rare /HPF (0-5)
[2019-05-16 23:21] LABS: CRYSTALS None Seen /LPF (None Seen)
[2019-05-16 23:34] LABS: ABSOLUTE NEUTROPHILS 9.4 thou/uL (1.4-8.2)
[2019-05-16 23:36] LABS: MAGNESIUM 1.8 mg/dL (1.8-2.4); PHOSPHORUS 2.2 mg/dL (2.5-4.9)
[2019-05-17] VITALS (7 sets, daily range): BP systolic 97–119; BP diastolic 59–80
[2019-05-17 00:45] LABS: HEMATOCRIT 37.9 % (37.0-47.0); MCH 32.2 pg (26.0-34.0); MCHC 33.8 g/dL (28.0-37.0); MCV 95.2 fL (80.0-100.0); RBC 3.98 mil/uL (4.20-5.00); RDW 14.3 % (10.5-14.5); WBC 9.9 thou/uL (4.0-11.0)
[2019-05-17 00:46] LABS: HEMOGLOBIN 12.8 gm/dL (12.0-15.0)
[2019-05-17 00:55] LABS: ALBUMIN 3.1 g/dL (3.4-5.0); CALCIUM 7.4 mg/dL (8.5-10.1); CREATININE 0.6 mg/dL (0.6-1.0); POTASSIUM 3.5 mmol/L (3.5-5.1); TOTAL BILIRUBIN 0.9 mg/dL (<0.1-1.0); TOTAL PROTEIN 5.9 g/dL (6.4-8.2)
[2019-05-17 01:21] LABS: AMP/METHAMP POSITIVE (Negative); BARBITURATES Negative (Negative); BENZODIAZEPINES Negative (Negative); COCAINE Negative (Negative); METHADONE Negative (Negative); OPIATES Negative (Negative); PCP Negative (Negative)
[2019-05-17 01:26] LABS: FOLIC ACID 2.8 ng/mL (8.6-58.9)
--- NOTE | 2019-05-17 07:28 | NUR ---
Arrived from ER around 0500. Requested pain med for abdominal pain. Fentanyl IV given with some relief. CIWA score of 12 initially , lorazepam 2 mg IV given. Also c/o nausea but no vomiting stated med given in ER helped some. No seizure activity. Seizure precaution maintained. IV fluids infusing.ST per tele in the mid 120's. Temp of 99.7 orally upon arrival. Report given to day RN. Will continue to monitor.
--- NOTE | 2019-05-17 10:21 | EKG ---
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 05/17/19 1020 2238 Scott Osman MD, [facility] /EPI
--- NOTE | 2019-05-17 16:21 | NUR ---
INITIAL ASSESSMENT: Received consult. SW reviewed chart and spoke with nursing and attending physician. Pt was admitted from home due to nausea/vomiting/dehydration. Pt off the unit having EGD during SW visit. Per chart, pt is alert/orientated x 4. Pt lives at home with family. Pt with hx of ETOH/substance abuse use. Pt has used [facility] in the past for wound care. SW is following to assist as needed with discharge planning.
--- NOTE | 2019-05-17 16:37 | NUR ---
PATIENT CONT TO REST IN BED AT THIS TIME. SHE ALERT ORIENTED X4. SHE DOES STATE SHE HAS ABDOMINAL PAIN BUT NOT TOO SEVERE. RATES PAIN AT A 3/10. CONT ON ALCOHOL WITHDRALWAL ASSESMENT. SHE HAS NEEDED TO ME MEDICATED TWICE THIS SHIFT. SHE HAS REMAINED CALM. NO N/V NOTED. CONT ON IV NS. HAD AND EGD DONE THIS PM. WILL OCNT WITH PONLAN OF CARE.
[2019-05-18 04:46] VITALS: BP 115/74
--- NOTE | 2019-05-18 06:40 | NUR ---
Pt. very tearful at beginning of shift and whenever she wakes up. Lorazepam IV given initially then hydroxyzine given later for ETOH withdrawal with some help. Medicated for abdominal pain with some relief. No c/o nausea this am and wondering if she will be started on a diet today. No seizure activities. Seizure precautions maintained. Making progress towards care plan goals.
[2019-05-18 07:59] VITALS: BP 107/66
[2019-05-18 10:51] VITALS: BP 121/87
--- NOTE | 2019-05-18 15:51 | NUR ---
SW reviewed chart and spoke with nursing and attending physician. Pt is s/p EGD and going through ETOH withdrawal. Psych evaluated pt and recommended pt follow up with [facility] after d/c. Pt indicated to attending physician that she was interested in ETOH treatment. SW met with pt at bedside. Introduced role of SW. Pt reports she lives at home with her family. Pt states she has been drinking daily for at least the past 10 years and she is interested in her treatment options. SW offered to have someone from [facility] come visit with her at the bedside to discuss options. Pt declines over, but is agreeable with SW providing literature and contact number for mobile ink jet operator. Pt will discharge home in 1-2 days when medically stable. SW place number for mobile accessor in pt's discharge summary. SW to provide pt with resources and literature for review prior to discharge. WILLA notified that pt had small bottle of vodka in her purse. Pt's nurse notified. WILLA notified attending physician, who requests the unit mgr to be notified. WILLA discussed with pt's nurse. WILLA is following to assist as needed with discharge planning.
[2019-05-18 16:06] LABS: HAV IgM AB (ANTI-HAV IgM) Negative (Negative); HEPATITIS B SURFACE AG Negative (Negative); HEPATITIS C VIRUS AB 0.1 (0.0-0.9)
[2019-05-18 16:17] VITALS: BP 106/68
[2019-05-18 16:28] VITALS: BP 121/87
--- NOTE | 2019-05-18 17:35 | NUR ---
assumed care of pt at 0700. pt aox4, tearful at times, anxious, mod tremors. ciwa 8-12. no relief with vistaril and 0.5 lorazepam. instructed by physician to give additional dose for relief. later in day staff member reported seeing bottle of alcohol hanging out of her purse. when confronted, patient adamantly denied it, saying said staff member likely saw the mace in her purse. patient instructed that if patient were to bring alcohol inside, that we would no longer be able to treat her with medication. patient understanding and is agreeable. physician and nursing home physician notified of incident. will cont to monitor.
[2019-05-18 19:49] VITALS: BP 121/89
--- NOTE | 2019-05-18 21:17 | NUR ---
Pt. left AMA and signed form around 2054. Left with significant other with all her belongings around 2114.She stated she feels a lot better and she is aware of the consequences of leaving AMA. Porfirio Miller NP{ and nursing synthetic department supervisor notified.
--- NOTE | 2019-05-19 10:17 | NUR ---
SW reviewed chart. Pt left AMA last evening. Pt's s/o provided transportation home. Case closed.
== END 2019-05-18 21:15 | disposition home or self-care (01) | DRG 369 ==
LOC: ER 21:57 → 3W 05-17 00:28 → EROBS 05-17 00:28 → 3W 05-17 05:13
PROVIDERS: Emergency Medicine; Nurse Practitioner; ADMIT Hospitalist
PROC: 0DJ08ZZ Inspection of Upper Intestinal Tract, Via Natural or Artificial Opening Endoscopic (ICD-10-PCS; principal; 2019-05-17)
DX: K22.6 Gastro-esophageal laceration-hemorrhage syndrome (principal); E87.1 Hypo-osmolality and hyponatremia; K92.0 Hematemesis; K44.9 Diaphragmatic hernia without obstruction or gangrene; F41.9 Anxiety disorder, unspecified; F32.9 Major depressive disorder, single episode, unspecified; F12.90 Cannabis use, unspecified, uncomplicated; E86.0 Dehydration; R00.0 Tachycardia, unspecified; F10.229 Alcohol dependence with intoxication, unspecified; T50.995A Adverse effect of other drugs, medicaments and biological substances, initial encounter; Y92.89 Other specified places as the place of occurrence of the external cause; Z90.49 Acquired absence of other specified parts of digestive tract; Z87.442 Personal history of urinary calculi; Z88.6 Allergy status to analgesic agent; Z88.8 Allergy status to other drugs, medicaments and biological substances; Z71.6 Tobacco abuse counseling
CPT/HCPCS: 10879; 62110; 62900; 70005

== ENCOUNTER 2020-03-20 08:12 | Emergency (ER) | payer OTHER ==
[~2020-03-20] VITALS: Ht 170.2 cm; Wt 59.0 kg
[2020-03-20 10:44] VITALS: BP 122/84
[2020-03-20] MEDS ORDERED: NAPROSYN500 MG PO (10:46)
== END 2020-03-20 11:15 | disposition home or self-care (01) ==
LOC: ER 08:12
DX: S43.084A Other dislocation of right shoulder joint, initial encounter (principal); F17.210 Nicotine dependence, cigarettes, uncomplicated; Z90.49 Acquired absence of other specified parts of digestive tract; Z79.899 Other long term (current) drug therapy; Z88.5 Allergy status to narcotic agent; Z88.8 Allergy status to other drugs, medicaments and biological substances; X50.1XXA Overexertion from prolonged static or awkward postures, initial encounter; Y93.89 Activity, other specified; Y92.89 Other specified places as the place of occurrence of the external cause; Y99.8 Other external cause status

== ENCOUNTER 2020-06-27 18:51 | Inpatient (IN) | payer OTHER ==
[~2020-06-27] VITALS: Ht 170.2 cm; Wt 56.7 kg
[2020-06-27 19:08] VITALS: BP 148/102
[2020-06-27 20:12] LABS: BASOPHILS 0.1 % (0.0-2.0); HEMATOCRIT 51.7 % (37.0-47.0); HEMOGLOBIN 16.8 gm/dL (12.0-15.0); LYMPHOCYTES 3.4 % (24.0-44.0); MCHC 32.6 g/dL (28.0-37.0); MCV 101.4 fL (80.0-100.0); PLATELET COUNT 386 thou/uL (150-400); POLYS 91.5 % (36.0-66.0); WBC 12.1 thou/uL (4.0-11.0)
[2020-06-27 20:21] LABS: ANION GAP 23 mmol/L (7-16); BUN 14 mg/dL (7-18); CALCIUM 10.4 mg/dL (8.5-10.1); CHLORIDE 96 mmol/L (98-107); CO2 17 mmol/L (21-32); CREATININE 1.2 mg/dL (0.6-1.0); GLUCOSE 147 mg/dL (74-106); POTASSIUM 4.8 mmol/L (3.5-5.1); SODIUM 136 mmol/L (136-145)
[2020-06-27 20:31] LABS: ALBUMIN 4.6 g/dL (3.4-5.0); DIRECT BILIRUBIN 0.1 mg/dL (<0.1-0.2); LIPASE 57 U/L (73-393); SGOT 74 U/L (15-37); SGPT 62 U/L (30-65); TOTAL BILIRUBIN 1.2 mg/dL (0.2-1.0); TOTAL PROTEIN 8.7 g/dL (6.4-8.2); TROPONIN-I <0.06 ng/mL (<0.06)
[2020-06-27 21:12] LABS: PROTIME 10.6 Seconds (9.3-11.4)
[2020-06-28 03:14] LABS: HEMATOCRIT 38.2 % (37.0-47.0); MCH 32.9 pg (26.0-34.0); MCHC 33.1 g/dL (28.0-37.0); MCV 99.5 fL (80.0-100.0); RBC 3.84 mil/uL (4.20-5.00); RDW 13.4 % (10.5-14.5); WBC 11.7 thou/uL (4.0-11.0)
[2020-06-28 03:17] LABS: HEMOGLOBIN 12.6 gm/dL (12.0-15.0)
[2020-06-28 03:37] LABS: CREATININE 0.9 mg/dL (0.6-1.0)
[2020-06-28 03:38] LABS: CALCIUM 7.7 mg/dL (8.5-10.1); POTASSIUM 3.3 mmol/L (3.5-5.1)
--- NOTE | 2020-06-28 11:38 | NUR ---
DR KILGORE AT BEDSIDE
[2020-06-28 13:01] VITALS: BP 105/70
[2020-06-28 13:46] VITALS: BP 105/70
[2020-06-28 14:15] VITALS: BP 105/70
--- NOTE | 2020-06-28 14:54 | EKG ---
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 : 1990 Requested By: Pan Dwyer Order Number: [id number] MD: Max Piña Measurements Intervals [place] Rate: 126 P: 83 NE: 136 QRS: 48 QRSD: 82 T: -7 QT: 338 QTc: 490 Interpretive Statements Sinus tachycardia Minimal ST depression, inferior leads Borderline prolonged QT interval Baseline wander in lead(s) V1 Compared to ECG 05/16/2019 22:38:09 ST (T wave) deviation now present T-wave abnormality no longer present Electronically Signed On 06-28-2020 14:54:29 [employer] [employer]UMER by Max Piña [email or web address] <ELECTRONICALLY SIGNED> By: Max Piña MD, FACC 06/28/20 1454 [id number] Max Piña MD, [facility] /EPI
[2020-06-28 15:35] VITALS: BP 124/82
--- NOTE | 2020-06-28 17:35 | NUR ---
PT ADMITTED TO THE FLOOR FOR ETOH WITHDRAW, N/V AND PREGNACY. ED STATED THAT ULTRASOUND DIDNT CONFIRM PREGNACY AND POSSIBLE FALSE POSITIVE D/T ELEVATED LIVER ENZYMES. PT A&OX4 WITH DROWSINESS D/T SCHEDULED ATIVAN. PT DENIES PAIN AT THIS TIME AND NO VOMITING SINCE ON THE FLOOR. PT SIGNIFICANT OTHER AT BEDSIDE NO QUESTIONS OR CONCERSN, CALL LIGHT IN REACH AND REFRESHMENTS PROVIDED.
[2020-06-28 20:10] VITALS: BP 121/82
[2020-06-29 00:30] VITALS: BP 118/81
[2020-06-29 03:48] LABS: HEMATOCRIT 39.4 % (37.0-47.0); HEMOGLOBIN 13.1 gm/dL (12.0-15.0); MCH 33.3 pg (26.0-34.0); MCHC 33.2 g/dL (28.0-37.0); RBC 3.94 mil/uL (4.20-5.00); RDW 13.4 % (10.5-14.5); WBC 8.1 thou/uL (4.0-11.0)
[2020-06-29 04:37] LABS: CALCIUM 8.6 mg/dL (8.5-10.1); CREATININE 0.6 mg/dL (0.6-1.0); MAGNESIUM 1.6 mg/dL (1.8-2.4); POTASSIUM 3.7 mmol/L (3.5-5.1)
[2020-06-29 04:44] VITALS: BP 107/71
--- NOTE | 2020-06-29 06:01 | NUR ---
PT ALERT AND ORIENTED. VITALS STABLE. 5 DOSES OF ATIVAN SCHEDULED COMPLETED. PT STILL EXHIBIT SIGNS OF WITHDRAWAL, ANXIOUSNESS AND NERVOUS. US NEGATIVE BUT HCG TRENDING UP. URGENT CARE PHYSICIAN PRODUCTION SUPPORT DEVELOPER NOTIFIED. NO NEW ORDERS TO TREAT ALCOHOLS WITHDRAWAL WITH ATIVAN, AWAITING OB CONSULTATION. WILL CONTINUE TO MONITOR/
[2020-06-29 07:42] VITALS: BP 109/72
--- NOTE | 2020-06-29 09:06 | NUR ---
ASSUMED CARE FOR PT AT 0700. PT SLEEPING LAYING ON LEFT SIDE WITH BLANKET OVER HER HEAD. PT STATES SHE WANTS TO LEAVE AMA. PT STATES SHE WILL DENY ANY OTHER MEDICAL CARE. VSS. WILL CONTINUE TO MONITOR.
--- NOTE | 2020-06-29 10:15 | NUR ---
PT PULLED IV AND PERSISTED TO LEAVE AMA. PT SIGNED AMA PAPERWORK AND LEFT AMA AT 1001.
== END 2020-06-29 10:09 | disposition left against medical advice (07) | DRG 894 ==
LOC: ER 18:51 → 2N 22:32 → EROBS 22:32 → 2N 06-28 14:36
PROVIDERS: Nurse Practitioner; Nurse Practitioner Family; ADMIT Hospitalist; ATTEND Hospitalist
DX: F10.231 Alcohol dependence with withdrawal delirium (principal); N17.9 Acute kidney failure, unspecified; E87.2 Acidosis; F41.9 Anxiety disorder, unspecified; F32.9 Major depressive disorder, single episode, unspecified; R74.01 Elevation of levels of liver transaminase levels; Z53.29 Procedure and treatment not carried out because of patient's decision for other reasons; Z90.49 Acquired absence of other specified parts of digestive tract; Z88.6 Allergy status to analgesic agent; Z87.442 Personal history of urinary calculi; Z88.8 Allergy status to other drugs, medicaments and biological substances
CPT/HCPCS: 10081

== ENCOUNTER 2020-09-29 10:12 | Emergency (ER) | payer OTHER ==
[~2020-09-29] VITALS: Ht 170.2 cm; Wt 59.0 kg
[2020-09-29 10:56] LABS: ABSOLUTE NEUTROPHILS 5.1 thou/uL (1.4-8.2); BASOPHILS 0.6 % (0.0-2.0); EOSINOPHILS 0.2 % (0.0-3.0); HEMATOCRIT 43.1 % (37.0-47.0); HEMOGLOBIN 15.2 gm/dL (12.0-15.0); LYMPHOCYTES 18.7 % (24.0-44.0); MCH 35.3 pg (26.0-34.0); MCHC 35.3 g/dL (28.0-37.0); MONOCYTES 14.2 % (1.0-8.0); PLATELET COUNT 335 thou/uL (150-400); POLYS 66.3 % (36.0-66.0); RBC 4.31 mil/uL (4.20-5.00); RDW 13.8 % (10.5-14.5); WBC 7.7 thou/uL (4.0-11.0)
[2020-09-29 11:02] LABS: CALCIUM 9.6 mg/dL (8.5-10.1); CREATININE 0.7 mg/dL (0.6-1.0)
[2020-09-29 11:07] LABS: POTASSIUM 2.9 mmol/L (3.5-5.1)
[2020-09-29 11:08] LABS: ALBUMIN 3.9 g/dL (3.4-5.0); TOTAL BILIRUBIN 1.2 mg/dL (0.2-1.0); TOTAL PROTEIN 7.5 g/dL (6.4-8.2)
--- NOTE | 2020-09-29 11:37 | EKG ---
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: jayla : 1990 Requested By: James Kent Order Number: [id number] MD: Max Piña Measurements Intervals [place] Rate: 79 P: 74 [place]: 132 QRS: 39 QRSD: 89 T: 56 QT: 425 QTc: 488 Interpretive Statements Sinus rhythm Left atrial enlargement Abnormal T, consider ischemia, anterior leads Compared to ECG 06/27/2020 23:06:57 Atrial abnormality now present T-wave abnormality now present Possible ischemia now present Sinus tachycardia no longer present ST (T wave) deviation no longer present Electronically Signed On 09-29-2020 11:37:22 CDT by Max Piña [email or web address] <ELECTRONICALLY SIGNED> By: Max Piña MD, FAC 09/29/20 1137 1056 1056 Max Piña MD, [facility] /EPI
[2020-09-29] MEDS ORDERED: ZOFRAN ODT4 MG PO (13:34)
[2020-09-29 14:20] VITALS: BP 95/63
== END 2020-09-29 14:20 | disposition home or self-care (01) ==
LOC: ER 10:12
PROVIDERS: Emergency Medicine
DX: K29.20 Alcoholic gastritis without bleeding (principal); E87.6 Hypokalemia; F17.210 Nicotine dependence, cigarettes, uncomplicated; F15.10 Other stimulant abuse, uncomplicated; F10.10 Alcohol abuse, uncomplicated; Z90.49 Acquired absence of other specified parts of digestive tract; Z87.442 Personal history of urinary calculi; Z98.890 Other specified postprocedural states; Z88.8 Allergy status to other drugs, medicaments and biological substances; Z88.6 Allergy status to analgesic agent

== ENCOUNTER 2020-10-12 04:38 | Emergency (ER) | payer OTHER ==
[~2020-10-12] VITALS: Ht 170.2 cm; Wt 56.7 kg
[2020-10-12] MEDS ORDERED: FLEXERIL PO (05:33)
[2020-10-12] MEDS ORDERED: HYDROCODON-ACE1 EAC7 PO (05:33)
[2020-10-12 10:58] VITALS: BP 107/60
== END 2020-10-12 10:58 | disposition home or self-care (01) ==
LOC: ER 04:38
DX: S43.084A Other dislocation of right shoulder joint, initial encounter (principal); F17.210 Nicotine dependence, cigarettes, uncomplicated; Z88.8 Allergy status to other drugs, medicaments and biological substances; X50.1XXA Overexertion from prolonged static or awkward postures, initial encounter; Y93.89 Activity, other specified; Y92.89 Other specified places as the place of occurrence of the external cause; Y99.8 Other external cause status